=== PATIENT | female | born 1950 | race Caucasian/White ===

== ENCOUNTER 2021-09-25 02:49 | Outpatient (CLI) | payer MEDICARE, MEDICAID, SELFPAY ==
[2021-09-25 10:26] LABS: Source Nasal/Nares
[2021-09-25 22:55] LABS: COVID-19 PCR Negative (Negative)
== END 2021-09-25 02:50 | disposition home or self-care (01) ==
PROVIDERS: PCP Urology; Visit Provider Orthopaedic Surgery Adult Reconstructive Orthopaedic Surgery
DX: Z20.822 Contact with and (suspected) exposure to COVID-19 (principal); Z01.818 Encounter for other preprocedural examination
CPT/HCPCS: 87635; U0005